=== PATIENT | female | born 1985 | race Caucasian/White ===

== ENCOUNTER 2020-11-13 12:11 | Emergency (ER) | payer OTHER ==
[~2020-11-13] VITALS: Ht 167.6 cm; Wt 97.5 kg
== END 2020-11-13 17:27 ==
LOC: ER 12:11
DX: N39.0 Urinary tract infection, site not specified (principal); K29.70 Gastritis, unspecified, without bleeding; E86.0 Dehydration; B34.9 Viral infection, unspecified; Z03.818 Encounter for observation for suspected exposure to other biological agents ruled out; R51.9 Headache, unspecified; R53.81 Other malaise

== ENCOUNTER 2021-02-28 14:53 | Inpatient (IN) | payer OTHER ==
[~2021-02-28] VITALS: Ht 167.6 cm; Wt 3.2 kg
[2021-02-28] MEDS ORDERED: PRENATAL TABLE1 EAC1 PO (16:35)
== END 2021-03-03 13:49 | disposition home or self-care (01) | DRG 785 ==
LOC: OB/GYN 14:53 → LDR 14:53 → OB/GYN 23:04
PROVIDERS: ADMIT Obstetrics & Gynecology Obstetrics; ATTEND Obstetrics & Gynecology Obstetrics
PROC: 0UB70ZZ Excision of Bilateral Fallopian Tubes, Open Approach (ICD-10-PCS; 2021-02-28)
PROC: 4A1HXFZ Monitoring of Products of Conception, Cardiac Rhythm, External Approach (ICD-10-PCS; 2021-02-28)
PROC: 10D00Z1 Extraction of Products of Conception, Low, Open Approach (ICD-10-PCS; principal; 2021-02-28 21:00)
DX: O34.211 Maternal care for low transverse scar from previous cesarean delivery (principal); Z30.2 Encounter for sterilization; Z37.0 Single live birth; Z3A.39 39 weeks gestation of pregnancy